=== PATIENT | female | born 1980 | race Caucasian/White ===

== ENCOUNTER 2019-04-23 08:19 | Emergency (ER) | payer MEDICAID ==
--- NOTE | 2019-04-23 08:50 | EDM.PDOC ---
ED HPI GENERAL MEDICAL PROBLEM - General Chief Complaint: Upper Extremity Injury/Pain Stated Complaint: fell outside right shoulder pain Time Seen by Provider: 04/23/19 08:40 Source of Information: Reports: Patient, Family History Limitations: Reports: No Limitations - History of Present Illness INITIAL COMMENTS - FREE TEXT/NARRATIVE: 38-year-old female slipped on the ice falling on her right arm within the last hour. She has intense upper arm pain and inability to move her right arm. No other injury. Onset: Sudden Duration: Hour(s): (Within the last hour) Location: Reports: Upper Extremity, Right Associated Symptoms: Reports: No Other Symptoms - Related Data Allergies Allergy/AdvReac Type Severity Reaction Status Date / Time Penicillins Allergy Vomiting Verified 04/23/19 08:41 Sulfa (Sulfonamide Allergy Itching Verified 04/23/19 08:41 Antibiotics) Home Meds: Home Meds Citalopram [Citalopram HBr] 20 mg PO DAILY 11/22/17 [History] Gabapentin [Neurontin] 300 mg PO TID 11/22/17 [History] Past Medical History Musculoskeletal History: Reports: Back Pain, Chronic Social & Family History - Caffeine Use Caffeine Use: Reports: Soda Review of Systems - Review of Systems Review Of Systems: See Below Constitutional: Denies: Fever Respiratory: Denies: Shortness of Breath Cardiovascular: Denies: Chest Pain GI/Abdominal: Reports: Nausea. Denies: Vomiting Musculoskeletal: Reports: Other (Chronic back pain) Skin: Reports: No Symptoms ED EXAM, GENERAL - Physical Exam Exam: See Below Exam Limited By: No Limitations General Appearance: Alert, Moderate Distress (Looks fairly comfortable) Neck: Supple, Non-Tender Respiratory/Chest: No Respiratory Distress Extremities: Other (No tenderness to palpation of the right clavicle, there is a defect under the ac joint and tenderness over the proximal humerus) Skin Exam: Warm, Dry Course - Vital Signs Last Recorded V/S: Last Vital Signs Temp 95.2 F L 04/23/19 08:42 Pulse 85 04/23/19 08:42 Resp 22 H 04/23/19 08:42 BP 108/67 04/23/19 08:42 Pulse Ox 99 04/23/19 08:42 - Orders/Labs/Meds Orders: Active Orders 24 hr Category Date Time Status Consult to Orthopedic Clinic [CONS] Routine Cons 04/23/19 09:55 Active DME for Discharge [COMM] Stat Oth 04/23/19 09:22 Ordered Meds: Medications Discontinued Medications Generic Name Dose Route Start Last Admin Trade Name Jones PRN Reason Stop Dose Admin Hydromorphone HCl 0.5 mg 04/23/19 08:55 04/23/19 09:02 Dilaudid IVPUSH 04/23/19 08:56 0.5 mg ONETIME ONE Administration Sodium Chloride 1,000 mls @ 1,000 mls/hr 04/23/19 09:00 04/23/19 09:03 Normal Saline IV 1,000 mls/hr ASDIRECTED MISTI Administration - Re-Assessments/Exams Free Text/Narrative Re-Assessment/Exam: 04/23/19 08:57 An x-ray of the right shoulder was obtained and confirmed an anterior dislocation. An IV was started, the patient was given 0.5 mg of IV Dilaudid and anesthesia was consulted for propofol induction during reduction. 04/23/19 09:22 Under propofol sedation the patient shoulder reduced with countertraction fairly easily. A postreduction x-ray was obtained. 04/23/19 09:48 Postreduction x-ray confirmed appropriate reduction. A sling was placed and the patient was symptom-free. I'm going to have her wear the sling for the next several days and avoid any abduction or external rotation of the arm and recheck with orthopedics next Tuesday. Departure - Departure Time of Disposition: 10:01 Disposition: Home, Self-Care 01 Clinical Impression: Dislocation of right shoulder joint Qualifiers: Encounter type: initial encounter Qualified Code(s): S43.004A - Unspecified dislocation of right shoulder joint, initial encounter - Discharge Information Instructions: Shoulder Dislocation Referrals: Tiny Hood PA-C [Primary Care Provider] - Forms: ED Department Discharge Care Plan Goals: Wear sling and wrap with Joey wrap if necessary to avoid extending were reaching up with your right arm until rechecked by orthopedics next week. Arm can be used out of the sling as discussed. - My Orders Last 24 Hours: My Active Orders 04/23/19 09:22 DME for Discharge [COMM] Stat 04/23/19 09:55 Consult to Orthopedic Clinic [CONS] Routine - Assessment/Plan Last 24 Hours: My Active Orders 04/23/19 09:22 DME for Discharge [COMM] Stat 04/23/19 09:55 Consult to Orthopedic Clinic [CONS] Routine
[2019-04-23] MEDS ORDERED: HYDROmorphone 0.5 MG/0.5 ML Syringe IVPUSH ONE (08:55)
[2019-04-23] MEDS ORDERED: Propofol 200 MG/20 ML SDV ONE (09:00)
[2019-04-23] MEDS ORDERED: Sodium Chloride 0.9% 1,000 ML IV SCH (09:00)
--- NOTE | 2019-04-23 09:26 | CR ---
Shoulder Comp Rt 2 view CLINICAL HISTORY: Fall FINDINGS: There is a anterior dislocation of glenohumeral joint. No fracture is identified on the current exam Impression: Anterior dislocation
--- NOTE | 2019-04-23 10:26 | CR ---
Shoulder 1V Rt CLINICAL HISTORY: Altered injection FINDINGS: Previously seen anterior dislocation has been reduced. There is a small Hill-Sachs deformity in the lateral aspect of the humeral articular margin. Impression: Reduction of previous anterior dislocation Small Hill-Sachs deformity laterally
== END 2019-04-23 10:01 | disposition home or self-care (01) ==
LOC: JP.ED 08:19
DX: S43.014A Anterior dislocation of right humerus, initial encounter (principal); Z88.0 Allergy status to penicillin; Z88.2 Allergy status to sulfonamides; W00.0XXA Fall on same level due to ice and snow, initial encounter
CPT/HCPCS: 23650; 73020; 73030; 96374; 99283; J1170; J2704; J7030

== ENCOUNTER 2020-07-11 17:43 | Emergency (ER) | payer MEDICARE, MEDICAID ==
[2020-07-11] MEDS ORDERED: Propofol 200 MG/20 ML SDV IVPUSH ONE (17:55)
--- NOTE | 2020-07-11 18:19 | EDM.PDOC ---
ED HPI GENERAL MEDICAL PROBLEM - General Chief Complaint: Upper Extremity Injury/Pain Stated Complaint: MEDICAL VIA [facility] Time Seen by Provider: 07/11/20 18:00 Source of Information: Reports: Patient, EMS, Family History Limitations: Reports: No Limitations - History of Present Illness INITIAL COMMENTS - FREE TEXT/NARRATIVE: 39-year-old female brought in by EMS with a right shoulder dislocation. This is the second episode, she had a dislocation late last fall and sustained a small lateral Hill-Sachs deformity. Tonight she was lying in bed, reached up to grab something and it popped out. No direct trauma, no fall. She is 8-1/2 months and just had a checkup yesterday and everything is going "great". She is otherwise healthy. She is having significant pain in the right shoulder and is unable to move the shoulder. She is holding it in adduction and internally rotated against her body. Onset: Sudden Duration: Hour(s): (Within the last hour) Location: Reports: Upper Extremity, Right Associated Symptoms: Reports: No Other Symptoms - Related Data Allergies Allergy/AdvReac Type Severity Reaction Status Date / Time Penicillins Allergy Vomiting Verified 07/11/20 18:20 Sulfa (Sulfonamide Allergy Itching Verified 07/11/20 18:20 Antibiotics) Home Meds: Home Meds Citalopram [Citalopram HBr] 20 mg PO DAILY 11/22/17 [History] Enoxaparin Sodium [Lovenox] 1 injection SQ BID 07/11/20 [History] valACYclovir HCl [Valacyclovir] 1 tab PO DAILY 07/11/20 [History] Past Medical History HEENT History: Reports: None Cardiovascular History: Reports: None Respiratory History: Reports: None Gastrointestinal History: Reports: None Genitourinary History: Reports: Renal Calculus [employer] History: Reports: Musculoskeletal History: Reports: Back Pain, Chronic, Other (See Below) Other Musculoskeletal History: right shoulder pain Neurological History: Reports: None Psychiatric History: Reports: Anxiety, Depression, PTSD Endocrine/Metabolic History: Reports: None Hematologic History: Reports: None Immunologic History: Reports: None Oncologic (Cancer) History: Reports: None Dermatologic History: Reports: None - Past Surgical History Head Surgeries/Procedures: Reports: None GI Surgical History: Reports: Appendectomy Female Surgical History: Reports: Lithotripsy/ESWL Musculoskeletal Surgical History: Reports: Other (See Below) Other Musculoskeletal Surgeries/Procedures:: back surgery x 3 Social & Family History - Caffeine Use Caffeine Use: Reports: Coffee Review of Systems - Review of Systems Review Of Systems: See Below Constitutional: Denies: Fever Respiratory: Reports: No Symptoms Cardiovascular: Reports: No Symptoms Musculoskeletal: Reports: Other (Pain in the right shoulder only) Skin: Reports: No Symptoms Neurological: Reports: No Symptoms Psychiatric: Reports: No Symptoms ED EXAM, GENERAL - Physical Exam Exam: See Below Exam Limited By: No Limitations General Appearance: Alert, Moderate Distress Respiratory/Chest: No Respiratory Distress, Lungs Clear Cardiovascular: Regular Rate, Rhythm Extremities: Other (Patient is an obvious defect under the lateral clavicle AC joint area, and a fullness anteriorly to the shoulder typical of anterior dislocation) Neurological: Alert, Oriented Psychiatric: Anxious Skin Exam: Warm, Dry Course - Vital Signs Last Recorded V/S: Last Vital Signs Temp 97.2 F 07/11/20 18:30 Pulse 86 07/11/20 18:30 Resp 14 07/11/20 18:30 BP 116/71 07/11/20 18:30 Pulse Ox 99 07/11/20 18:30 - Orders/Labs/Meds Orders: Active Orders 24 hr Category Date Time Status Consult to Orthopedic Clinic [CONS] Routine Cons 07/11/20 18:34 Active DME for Discharge [COMM] Stat Oth 07/11/20 18:26 Ordered Meds: Medications Discontinued Medications Generic Name Dose Route Start Last Admin Trade Name Jones PRN Reason Stop Dose Admin Propofol 200 mg 07/11/20 17:55 07/11/20 18:40 Diprivan 20 Ml IVPUSH 07/11/20 17:56 80 mg ONETIME ONE Administration - Re-Assessments/Exams Free Text/Narrative Re-Assessment/Exam: 07/11/20 18:14 Due to her and the very straightforward nature of the injury, an x-ray was deferred. Patient was given 90 mg of IV propofol for sedation as she has not eaten in the last 3-1/2 hours. Using countertraction, the shoulder was relocated without difficulty. 07/11/20 18:19 15 minutes after the reduction, patient was back to baseline except for slightly "woozy". A right arm sling was applied and I am going to recommend she follow- up with Dr. Fernandez next week because of the recurring nature of the injury. She will keep her arm in sling through the weekend. Departure - Departure Time of Disposition: 18:58 Disposition: Home, Self-Care 01 Clinical Impression: Anterior dislocation of right shoulder Qualifiers: Encounter type: initial encounter Qualified Code(s): S43.014A - Anterior dislocation of right humerus, initial encounter - Discharge Information Instructions: Shoulder Dislocation Referrals: PCP,None [Primary Care Provider] - Forms: ED Department Discharge Care Plan Goals: Keep your arm in sling through the weekend, and call Dr. Fernandez's clinic on Tuesday morning to schedule an appointment for recheck either Tuesday or of next week. If you remove your arm from the sling at any point, avoid reaching up or back with your right arm. Return anytime if worsening or concerns. Sepsis Event Note (ED) - Focused Exam Vital Signs: Vital Signs Temp Pulse Resp BP Pulse Ox 07/11/20 18:30 97.2 F 86 14 116/71 99 07/11/20 17:51 97.7 F 84 20 124/74 96 - My Orders Last 24 Hours: My Active Orders 07/11/20 18:26 DME for Discharge [COMM] Stat 07/11/20 18:34 Consult to Orthopedic Clinic [CONS] Routine - Assessment/Plan Last 24 Hours: My Active Orders 07/11/20 18:26 DME for Discharge [COMM] Stat 07/11/20 18:34 Consult to Orthopedic Clinic [CONS] Routine
== END 2020-07-11 18:59 | disposition home or self-care (01) ==
LOC: JP.ED 17:43
DX: O9A.213 Injury, poisoning and certain other consequences of external causes complicating pregnancy, third trimester (principal); S43.014A Anterior dislocation of right humerus, initial encounter; Z88.0 Allergy status to penicillin; Z88.2 Allergy status to sulfonamides; Z3A.36 36 weeks gestation of pregnancy; X58.XXXA Exposure to other specified factors, initial encounter
CPT/HCPCS: 23650; 23655; 99283; J2704

== ENCOUNTER 2020-07-28 13:07 | Emergency (ER) | payer MEDICARE, MEDICAID ==
--- NOTE | 2020-07-28 13:49 | EDM.PDOC ---
ED HPI GENERAL MEDICAL PROBLEM - General Chief Complaint: Lower Extremity Injury/Pain Stated Complaint: L KNEE PAIN Time Seen by Provider: 07/28/20 13:35 Source of Information: Reports: Patient, RN History Limitations: Reports: No Limitations - History of Present Illness INITIAL COMMENTS - FREE TEXT/NARRATIVE: 39 yo female claims she had a recent stress fx to her lateral knee area that is being managed with a walker and no weight bearing. She has an ortho appt to follow up on this this coming Tuesday([facility]). Today she fell onto her butt and the pain in her knee is much worse. She did not strike the knee. Here for eval. Onset: Today, Sudden Onset Date: 07/28/20 Duration: Minutes:, Constant Location: Reports: Lower Extremity, Left Quality: Reports: Ache Severity: Moderate Improves with: Reports: Rest Worsens with: Reports: Movement Context: Reports: Trauma Associated Symptoms: Reports: No Other Symptoms Treatments INCIDENT HANDLER: Reports: Other (see below) (percocet x 1) Left Knee Pain Score (Numeric/FACES): 5 - Related Data Allergies Allergy/AdvReac Type Severity Reaction Status Date / Time Penicillins Allergy Vomiting Verified 07/11/20 18:20 Sulfa (Sulfonamide Allergy Itching Verified 07/11/20 18:20 Antibiotics) Home Meds: Home Meds Citalopram [Citalopram HBr] 20 mg PO DAILY 11/22/17 [History] Acetaminophen/HYDROcodone [[place] 325-5 MG] 1 tab PO Q6H PRN 07/28/20 [History] Cholecalciferol (Vitamin D3) [Vitamin D3] 1,000 unit PO DAILY 07/28/20 [History] Fluticasone Propionate [Flonase] 2 spray NASBOTH DAILY 07/28/20 [History] Gabapentin [Neurontin] 200 mg PO TID 07/28/20 [History] L.acidoph,Paracasei, B.lactis [Probiotic] 1 each PO DAILY 07/28/20 [History] No122/Iron/Folic Acid [ Multi Tablet] 1 tab PO DAILY 07/28/20 [History] Vitamin E Acetate [Vitamin E] 600 unit PO DAILY 07/28/20 [History] Past Medical History HEENT History: Reports: None Cardiovascular History: Reports: None Respiratory History: Reports: None Gastrointestinal History: Reports: None Genitourinary History: Reports: Renal Calculus 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: Musculoskeletal History: Reports: Back Pain, Chronic, Other (See Below) Other Musculoskeletal History: right shoulder pain Neurological History: Reports: None Psychiatric History: Reports: Anxiety, Depression, PTSD Endocrine/Metabolic History: Reports: None Hematologic History: Reports: None Immunologic History: Reports: None Oncologic (Cancer) History: Reports: None Dermatologic History: Reports: None - Infectious Disease History Infectious Disease History: Reports: Chicken Pox - Past Surgical History Head Surgeries/Procedures: Reports: None GI Surgical History: Reports: Appendectomy, ERCP Female Surgical History: Reports: Lithotripsy/ESWL Musculoskeletal Surgical History: Reports: Other (See Below) Other Musculoskeletal Surgeries/Procedures:: back surgery x 3 Social & Family History - Tobacco Use Tobacco Use Status *Q: Current Every Day Tobacco User Years of Tobacco use: 25 Packs/Tins Daily: 1 - Caffeine Use Caffeine Use: Reports: Coffee - Recreational Drug Use Recreational Drug Use: No Review of Systems - Review of Systems Review Of Systems: See Below Constitutional: Reports: No Symptoms Musculoskeletal: Reports: Joint Pain (L lateral knee) Skin: Reports: No Symptoms Neurological: Reports: No Symptoms ED EXAM, GENERAL - Physical Exam Exam: See Below General Appearance: Alert, WD/WN, No Apparent Distress Extremities: Normal Inspection, No Pedal Edema, Limited Range of Motion (due to pain). No: Normal Range of Motion, Non-Tender, Pedal Edema, Increased Warmth, Redness Neurological: Alert, Oriented, CN II-XII Intact, Normal Cognition, No Motor/Sensory Deficits Skin Exam: Warm, Dry, Intact, Normal Color, No Rash Course - Vital Signs Last Recorded V/S: Last Vital Signs Temp 36.7 C 07/28/20 13:28 Pulse 101 H 07/28/20 13:28 Resp 13 07/28/20 13:28 BP 106/74 07/28/20 13:28 Pulse Ox 95 07/28/20 13:28 - Orders/Labs/Meds Meds: Medications Discontinued Medications Generic Name Dose Route Start Last Admin Trade Name Freq PRN Reason Stop Dose Admin Oxycodone/Acetaminophen 1 tab 07/28/20 14:12 07/28/20 14:24 Percocet 325-5 Mg PO 07/28/20 14:13 1 tab ONETIME STA Administration - Radiology Interpretation Free Text/Narrative:: L knee X-ray- - Re-Assessments/Exams Free Text/Narrative Re-Assessment/Exam: 07/28/20 15:22 Long leg splint applied to further limit movement of the left knee. Free Text/Narrative Re-Assessment/Exam: 07/28/20 15:50 Patient not cooperative for a full knee X-ray series. The one view obtained is negative. Departure - Departure Time of Disposition: 16:00 Disposition: Home, Self-Care 01 Condition: Fair Clinical Impression: Left knee pain Qualifiers: Chronicity: unspecified Qualified Code(s): M25.562 - Pain in left knee - Discharge Information *PRESCRIPTION DRUG MONITORING PROGRAM REVIEWED*: No *COPY OF PRESCRIPTION DRUG MONITORING REPORT IN PATIENT ANGELES: No Instructions: Acute Knee Pain, Adult, [id number] Referrals: Tiny Hood PA-C [Primary Care Provider] - Forms: ED Department Discharge Additional Instructions: Use your immobilizer except when bathing. May take it off to bathe and then reapply it. Use your Vicodin for pain relief. Keep your appt for Tuesday with your [facility] Orthopedic provider. Use your walker and no weight bearing. Sepsis Event Note (ED) - Evaluation Sepsis Screening Result: No Definite Risk - Focused Exam Vital Signs: Vital Signs Temp Pulse Resp BP Pulse Ox 07/28/20 13:28 36.7 C 101 H 13 106/74 95 07/28/20 13:23 36.7 C 101 H 13 106/74 95
[2020-07-28] MEDS ORDERED: Acetaminophen/oxyCODONE 325-5 MG Tab PO STA (14:12)
--- NOTE | 2020-07-28 14:26 | CR ---
Knee 1V or 2V Lt CLINICAL HISTORY: Knee pain FINDINGS: Only a single lateral image is able to be obtained due to patient pain. No acute fracture or dislocation is noted. There are no osseous lesions. IMPRESSION: Very limited study No fracture or dislocation identified. Full study recommended when patient's condition allows
== END 2020-07-28 16:10 | disposition home or self-care (01) ==
LOC: JP.ED 13:07
DX: M25.562 Pain in left knee (principal); Z72.0 Tobacco use; Z88.2 Allergy status to sulfonamides; Z88.0 Allergy status to penicillin; Z79.899 Other long term (current) drug therapy
CPT/HCPCS: 29505; 73560; 99283; A9270; 29105; 99282

== ENCOUNTER 2020-08-12 17:58 | Emergency (ER) | payer MEDICARE, MEDICAID ==
[2020-08-12] MEDS ORDERED: cefTRIAXone 2 GM in Sodium Chloride 0.9% 50 ML IV ONE (19:17)
[2020-08-12] MEDS ORDERED: HYDROmorphone 1 MG/ML Syringe IVPUSH ONE (19:17)
[2020-08-12] MEDS ORDERED: Ondansetron 4 MG/2 ML SDV IVPUSH ONE (19:18)
--- NOTE | 2020-08-12 19:28 | EDM.PDOC ---
ED HPI GENERAL MEDICAL PROBLEM - General Chief Complaint: Abdominal Pain Stated Complaint: KIDNEY OR BLADDER INFECTION Time Seen by Provider: 08/12/20 18:37 Source of Information: Reports: Patient, Family ( at bedside), RN, RN Notes Reviewed - History of Present Illness INITIAL COMMENTS - FREE TEXT/NARRATIVE: chief complaint: bad bladder infection This is a 40 year old female presents to the ER with , reports has been feeling sick for the past two days. reports painful urination, fever, chills, nausea without vomiting, and left sided back pain. reports she has bladder infections in the past. reports had a baby girl on 07/20/2020 without any complications. vaginal delivery. has 2 Sons age 7 years and 16 years old. Onset: Gradual Onset Date: 08/11/20 Duration: Day(s): (two), Getting Worse Location: Reports: Abdomen, Radiates to (left lower back) Quality: Reports: Same as Previous Episode, Stabbing, Throbbing Severity: Severe Improves with: Reports: None Worsens with: Reports: Movement Associated Symptoms: Reports: Fever/Chills, Loss of Appetite, Malaise, Nausea/Vomiting - Related Data Allergies Allergy/AdvReac Type Severity Reaction Status Date / Time Penicillins Allergy Vomiting Verified 08/12/20 18:26 Sulfa (Sulfonamide Allergy Itching Verified 08/12/20 18:26 Antibiotics) Home Meds: Home Meds Citalopram [Citalopram HBr] 20 mg PO DAILY 11/22/17 [History] Acetaminophen/HYDROcodone [[place] 325-5 MG] 1 tab PO Q6H PRN 07/28/20 [History] Cholecalciferol (Vitamin D3) [Vitamin D3] 1,000 unit PO DAILY 07/28/20 [History] Heparin Sodium,Porcine/PF [Heparin 2 Unit/2 ml (1/ml) Syr] 4 units SQ ASDIRECTED 08/12/20 [History] Past Medical History HEENT History: Reports: None Cardiovascular History: Reports: Blood Clots/VTE/DVT Respiratory History: Reports: None Gastrointestinal History: Reports: None Genitourinary History: Reports: Renal Calculus 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: Musculoskeletal History: Reports: Back Pain, Chronic, Other (See Below) Other Musculoskeletal History: right shoulder pain Neurological History: Reports: None Psychiatric History: Reports: Anxiety, Depression, PTSD Endocrine/Metabolic History: Reports: None Hematologic History: Reports: Anticoagulation Therapy Immunologic History: Reports: None Oncologic (Cancer) History: Reports: None Dermatologic History: Reports: None - Infectious Disease History Infectious Disease History: Reports: Chicken Pox - Past Surgical History Head Surgeries/Procedures: Reports: None GI Surgical History: Reports: Appendectomy, ERCP Female Surgical History: Reports: Lithotripsy/ESWL Musculoskeletal Surgical History: Reports: Other (See Below) Other Musculoskeletal Surgeries/Procedures:: back surgery x 3 Oncologic Surgical History: Reports: None Dermatological Surgical History: Reports: None Social & Family History - Tobacco Use Tobacco Use Status *Q: Current Every Day Tobacco User Years of Tobacco use: 20 Packs/Tins Daily: 1.5 Used Tobacco, but Quit: No Second Hand Smoke Exposure: No - Caffeine Use Caffeine Use: Reports: Coffee - Recreational Drug Use Recreational Drug Use: No - Living Situation & Occupation Living situation: Reports: , with Family (lives with and 3 children ages 3 month, 7 year, and 16 years Home in [place] about [place] north of [place].) ED ROS GENERAL - Review of Systems Review Of Systems: See Below Constitutional: Reports: Fever, Chills, Malaise, Fatigue, Decreased Appetite HEENT: Reports: No Symptoms Respiratory: Reports: No Symptoms Cardiovascular: Reports: No Symptoms Endocrine: Reports: No Symptoms GI/Abdominal: Reports: Abdominal Pain, Decreased Appetite, Nausea : Reports: Dysuria, Flank Pain (left sided), Frequency, Urgency Musculoskeletal: Reports: Back Pain (left lower back pain), Other (left lower leg in des wrap for a stress fracture.) Skin: Reports: No Symptoms Neurological: Reports: No Symptoms Psychiatric: Reports: No Symptoms Hematologic/Lymphatic: Reports: No Symptoms Immunologic: Reports: No Symptoms ED EXAM, GI/ABD - Physical Exam Exam: See Below Exam Limited By: No Limitations General Appearance: Alert, WD/WN, Moderate Distress. No: Thin Eyes: Bilateral: Normal Appearance, EOMI Ears: Normal External Exam Nose: Normal Inspection Throat/Mouth: Normal Inspection Head: Atraumatic, Normocephalic Neck: Normal Inspection, Supple, Non-Tender Respiratory/Chest: No Respiratory Distress, Lungs Clear, Normal Breath Sounds, No Accessory Muscle Use Cardiovascular: Normal Peripheral Pulses, Regular Rate, Rhythm, No Edema GI/Abdominal Exam: Normal Bowel Sounds, Soft, Tender (lower abdomen) (Female) Exam: Deferred Rectal (Female) Exam: Deferred Back Exam: Normal Inspection, CVA Tenderness (L) Extremities: Other (left lower leg in des wrap for recent stress fracture) Neurological: Alert, Oriented, CN II-XII Intact, Normal Cognition, Normal Gait, Normal Reflexes, No Motor/Sensory Deficits Psychiatric: Normal Affect, Normal Mood Skin Exam: Warm, Dry, Intact, Pallor Lymphatic: No Adenopathy Course - Vital Signs Last Recorded V/S: Last Vital Signs Temp 96.6 F L 08/12/20 18:30 Pulse 136 H 08/12/20 18:30 Resp 16 08/12/20 18:30 BP 118/77 08/12/20 18:30 Pulse Ox 97 08/12/20 18:30 - Orders/Labs/Meds Orders: Active Orders 24 hr Category Date Time Status CULTURE BLOOD [BC] Urgent Lab 08/12/20 19:34 Received CULTURE BLOOD [BC] Urgent Lab 08/12/20 19:37 Received CULTURE URINE [RM] Urgent Lab 08/12/20 18:54 Received Sodium Chloride 0.9% [Normal Saline] 1,000 ml Med 08/12/20 19:30 Active IV ASDIRECTED Blood Culture x2 Reflex Set [OM.PC] Urgent Oth 08/12/20 19:16 Ordered Medication Orders Sodium Chloride (Normal Saline) 1,000 mls @ 999 mls/hr IV ASDIRECTED [facility] Last Admin: 08/12/20 19:49 Dose: 999 mls/hr Documented by: MÓNICA Labs: Laboratory Tests 08/12/20 08/12/20 08/12/20 Range/Units 18:19 19:34 19:34 WBC 15.4 H (4.5-11.0) K/uL RBC 4.05 (3.30-5.50) M/uL Hgb 11.7 L (12.0-15.0) g/dL Hct 36.6 (36.0-48.0) % MCV 90 (80-98) fL MCH 29 (27-31) pg MCHC 32 (32-36) % Plt Count 238 (150-400) K/uL Neut % (Auto) 84 H (36-66) % Lymph % (Auto) 9 L (24-44) % [place] % (Auto) 7 H (2-6) % Eos % (Auto) 0 L (2-4) % Baso % (Auto) 0 (0-1) % Sodium 136 L (140-148) mmol/L Potassium 3.5 L (3.6-5.2) mmol/L Chloride 97 L (100-108) mmol/L Carbon Dioxide 25 (21-32) mmol/L Anion Gap 17.5 H (5.0-14.0) mmol/L BUN 13 (7-18) mg/dL Creatinine 1.1 H (0.6-1.0) mg/dL Est Cr Clr Drug Dosing 59.29 mL/min Estimated GFR (MDRD) 55 L (>60) Glucose 98 (74-106) mg/dL Calcium 9.6 (8.5-10.1) mg/dL Urine Color Yellow (YELLOW) Urine Appearance Cloudy A (CLEAR) Urine pH 6.0 (5.0-8.0) Ur Specific [place] 1.015 (1.008-1.030) Urine Protein 100 H (NEGATIVE) mg/dL Urine Glucose (UA) Negative (NEGATIVE) mg/dL Urine Ketones 15 H (NEGATIVE) mg/dL Urine Occult Blood Moderate H (NEGATIVE) Urine Nitrite Positive H (NEGATIVE) Urine Bilirubin Negative (NEGATIVE) Urine Urobilinogen 0.2 (0.2-1.0) EU/dL Ur Leukocyte Esterase Small H (NEGATIVE) Urine RBC 5-10 H (0-5) Urine WBC 10-20 H (0-5) Ur Epithelial Cells Few Amorphous Sediment Occasional Urine Bacteria Moderate Urine Mucus Occasional Urine Other Meds: Medications Generic Name Dose Route Start Last Admin Trade Name Freq PRN Reason Stop Dose Admin Sodium Chloride 1,000 mls @ 999 mls/hr 08/12/20 19:30 08/12/20 19:49 Normal Saline IV 999 mls/hr ASDIRECTED MISTI Administration Discontinued Medications Generic Name Dose Route Start Last Admin Trade Name Freq PRN Reason Stop Dose Admin Hydromorphone HCl 1 mg 08/12/20 19:17 08/12/20 19:48 Hydromorphone 1 Mg/Ml Syringe IVPUSH 08/12/20 19:18 1 mg ONETIME ONE Administration Ceftriaxone Sodium 2 gm/ 50 mls @ 100 mls/hr 08/12/20 19:17 08/12/20 19:49 Sodium Chloride IV 08/12/20 19:46 100 mls/hr ONETIME ONE Administration Ondansetron HCl 4 mg 08/12/20 19:18 08/12/20 19:48 Ondansetron 4 Mg/2 Ml Sdv IVPUSH 08/12/20 19:19 4 mg ONETIME ONE Administration - Re-Assessments/Exams Free Text/Narrative Re-Assessment/Exam: 08/12/20 19:32 discussed pyelonephritis vs urinary tract infection and treatment options and adverse events. She is willing to stay for antibiotics, IV fluids and labs. and outpatient medications declines admission to hospital or CT scan of abdomen pelvis discussed will give IV Rocephin 2 grams IV antibiotic IV Normal Saline one liter for hydration IV Dilaudid 1 mg for pain control IV Zofran 4mg for nausea Labs -CBC= wbc 15.4, hgb 11.7, hct 36.6 , plt 238 -BMP= na+136, k+ 3.5, cl-97, co2 25, cr 1.1, gfr 59, -urine= cloudy, 1.015, ketones 15, blood moderate, nitrate +, leukocytes small, wbc 10-20, rbc 5-10 -blood cultures x2 -urine culture pending Discharge medications -Keflex 500mg take one capsule 4 x a day for 10 days -Pyridium 200mg tid prn bladder spasm -Tylenol with codeine one every 4 to 6 hours as needed for pain #15 Discharge plans -take medications as prescribed -push fluids -keep up nutrition -rest as much as possible til recovered. -follow in clinic for recheck in 3 to 5 days -return to ER if has any fever, chills, nausea, vomiting, rash or not improved. and Mrs. Hood agree with plan of care. 08/12/20 20:26 now feeling better and will discharge to home with instructions Departure - Departure Time of Disposition: 20:34 Disposition: Home, Self-Care 01 Condition: Good Clinical Impression: Pyelonephritis, Urinary tract infection - Discharge Information *PRESCRIPTION DRUG MONITORING PROGRAM REVIEWED*: No *COPY OF PRESCRIPTION DRUG MONITORING REPORT IN PATIENT ANGELES: No Instructions: Pyelonephritis, Adult, [id number], Urinary Tract Infection, Adult Referrals: Tiny Hood PADarrylC [Primary Care Provider] - Forms: ED Department Discharge Care Plan Goals: Urinary Tract Infection and left sided Pyelonephritis Discharge medications -Keflex 500mg take one capsule 4 x a day for 10 days -Pyridium 200mg tid prn bladder spasm -Tylenol with codeine one every 4 to 6 hours as needed for pain #15 Discharge plans -take medications as prescribed -push fluids -keep up nutrition -rest as much as possible til recovered. -follow in clinic for recheck in 3 to 5 days -return to ER if has any fever, chills, nausea, vomiting, rash or not improved. and Mrs. Hood agree with plan of care. Sepsis Event Note (ED) - Evaluation Sepsis Screening Result: No Definite Risk - Focused Exam Vital Signs: Vital Signs Temp Pulse Resp BP Pulse Ox 08/12/20 18:30 96.6 F L 136 H 16 118/77 97 08/12/20 18:19 96.6 F L 136 H 16 118/77 97 - Problem List & Annotations (1) Pyelonephritis SNOMED Code(s): 58897108 Code(s): N12 - TUBULO-INTERSTITIAL NEPHRITIS, NOT SPCF ACUTE OR CHRONIC Status: Acute Priority: High Current Visit: Yes (2) Urinary tract infection SNOMED Code(s): 88280165 Code(s): N39.0 - URINARY TRACT INFECTION, SITE NOT SPECIFIED Status: Acute Priority: High Current Visit: Yes Qualifiers: Urinary tract infection type: acute pyelonephritis Qualified Code(s): N10 - Acute pyelonephritis - Problem List Review Problem List Initiated/Reviewed/Updated: Yes - My Orders Last 24 Hours: My Active Orders 08/12/20 19:16 Blood Culture x2 Reflex Set [OM.PC] Urgent 08/12/20 19:30 Sodium Chloride 0.9% [Normal Saline] 1,000 ml IV ASDIRECTED 08/12/20 19:34 CULTURE BLOOD [BC] Urgent 08/12/20 19:37 CULTURE BLOOD [BC] Urgent - Assessment/Plan Last 24 Hours: My Active Orders 08/12/20 19:16 Blood Culture x2 Reflex Set [OM.PC] Urgent 08/12/20 19:30 Sodium Chloride 0.9% [Normal Saline] 1,000 ml IV ASDIRECTED 08/12/20 19:34 CULTURE BLOOD [BC] Urgent 08/12/20 19:37 CULTURE BLOOD [BC] Urgent Plan: Urinary Tract Infection with Pyelonephritis Discharge medications -Keflex 500mg take one capsule 4 x a day for 10 days -Pyridium 200mg tid prn bladder spasm -Tylenol with codeine one every 4 to 6 hours as needed for pain #15 Discharge plans -take medications as prescribed -push fluids -keep up nutrition -rest as much as possible til recovered. -follow in clinic for recheck in 3 to 5 days -return to ER if has any fever, chills, nausea, vomiting, rash or not improved. and Mrs. Hood agree with plan of care.
[2020-08-12] MEDS ORDERED: Sodium Chloride 0.9% 1,000 ML IV SCH (19:30)
== END 2020-08-12 21:15 | disposition home or self-care (01) ==
LOC: JP.ED 17:58
DX: N12 Tubulo-interstitial nephritis, not specified as acute or chronic (principal); Z88.0 Allergy status to penicillin; Z88.2 Allergy status to sulfonamides; Z86.718 Personal history of other venous thrombosis and embolism; Z79.899 Other long term (current) drug therapy; Z72.0 Tobacco use
CPT/HCPCS: 36415; 80048; 81001; 85025; 87040; 87077; 87086; 87088; 87186; 96365; 96375; 99283-25; 99284; J0696; J1170; J2405; J7030

== ENCOUNTER 2020-09-15 17:20 | Emergency (ER) | payer MEDICARE, MEDICAID ==
--- NOTE | 2020-09-15 17:45 | EDM.PDOC ---
ED HPI GENERAL MEDICAL PROBLEM - General Chief Complaint: Genitourinary Problem Stated Complaint: UTI Time Seen by Provider: 09/15/20 17:45 Source of Information: Reports: Patient History Limitations: Reports: No Limitations - History of Present Illness INITIAL COMMENTS - FREE TEXT/NARRATIVE: 40-year-old female developed fairly sudden onset of left lower abdominal and left flank pain with urinary urgency 24 hours ago. She has a history of UTIs but also has a remote history of nephrolithiasis. No fevers or chills, she is very uncomfortable and had difficulty sleeping last night. No nausea or vomiting. Onset: Sudden (Fairly suddenly 24 hours ago) Duration: Day(s): (Symptoms for 2 days) Location: Reports: Abdomen, Back (Left-sided) Improves with: Reports: None Worsens with: Reports: None Associated Symptoms: Reports: Malaise. Denies: Chest Pain, Fever/Chills, Headaches, Shortness of Breath Left Flank Pain Score (Numeric/FACES): 8 - Related Data Allergies Allergy/AdvReac Type Severity Reaction Status Date / Time Penicillins Allergy Vomiting Verified 08/12/20 18:26 Sulfa (Sulfonamide Allergy Itching Verified 08/12/20 18:26 Antibiotics) Home Meds: Home Meds Citalopram [Citalopram HBr] 20 mg PO DAILY 11/22/17 [History] Cholecalciferol (Vitamin D3) [Vitamin D3] 1,000 unit PO DAILY 07/28/20 [History] Heparin Sodium,Porcine/PF [Heparin 2 Unit/2 ml (1/ml) Syr] 4 units SQ ASDIRECTED 08/12/20 [History] Nitrofurantoin Monohyd/M-Cryst [Macrobid 100 mg Capsule] 100 mg PO BID #14 capsule 09/15/20 [Rx] Past Medical History HEENT History: Reports: None Cardiovascular History: Reports: Blood Clots/VTE/DVT Respiratory History: Reports: None Gastrointestinal History: Reports: None Genitourinary History: Reports: Renal Calculus 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: Musculoskeletal History: Reports: Back Pain, Chronic, Other (See Below) Other Musculoskeletal History: right shoulder pain Neurological History: Reports: None Psychiatric History: Reports: Anxiety, Depression, PTSD Endocrine/Metabolic History: Reports: None Hematologic History: Reports: Anticoagulation Therapy Immunologic History: Reports: None Oncologic (Cancer) History: Reports: None Dermatologic History: Reports: None - Infectious Disease History Infectious Disease History: Reports: Chicken Pox - Past Surgical History Head Surgeries/Procedures: Reports: None GI Surgical History: Reports: Appendectomy, ERCP Female Surgical History: Reports: Lithotripsy/ESWL Musculoskeletal Surgical History: Reports: Other (See Below) Other Musculoskeletal Surgeries/Procedures:: back surgery x 3 Oncologic Surgical History: Reports: None Dermatological Surgical History: Reports: None Social & Family History - Tobacco Use Tobacco Use Status *Q: Current Every Day Tobacco User Years of Tobacco use: 25 Packs/Tins Daily: 0.5 - Caffeine Use Caffeine Use: Reports: Coffee, Soda - Recreational Drug Use Recreational Drug Use: No - Living Situation & Occupation Living situation: Reports: , with Family (lives with and 3 children ages 3 month, 7 year, and 16 years Home in [place] about [place] north of [place].) ED ROS GENERAL - Review of Systems Review Of Systems: See Below Constitutional: Reports: Malaise. Denies: Fever, Chills Respiratory: Denies: Shortness of Breath Cardiovascular: Denies: Chest Pain GI/Abdominal: Reports: Abdominal Pain (Left lower quadrant) : Reports: Dysuria, Frequency, Urgency Musculoskeletal: Reports: Back Pain (Left flank) Skin: Reports: No Symptoms Neurological: Reports: No Symptoms Psychiatric: Reports: No Symptoms ED EXAM, RENAL/ - Physical Exam Exam: See Below Exam Limited By: No Limitations General Appearance: Alert, No Apparent Distress Head: Atraumatic Respiratory/Chest: No Respiratory Distress, Lungs Clear Cardiovascular: Regular Rate, Rhythm. No: Tachycardia GI/Abdominal: Soft, Other (Reacts with some tenderness in the lower abdomen but no guarding or rebound) Back Exam: CVA Tenderness (L), Other (Well-healed surgical scars) Neurological: Alert, Oriented Psychiatric: Anxious Skin Exam: Warm, Dry Course - Vital Signs Last Recorded V/S: Last Vital Signs Temp 97.9 F 09/15/20 17:36 Pulse 93 09/15/20 17:36 Resp 16 09/15/20 17:36 BP 133/73 09/15/20 17:36 Pulse Ox 100 09/15/20 17:36 - Orders/Labs/Meds Orders: Active Orders 24 hr Category Date Time Status CULTURE URINE [RM] Stat Lab 09/15/20 18:22 Results Labs: Laboratory Tests 09/15/20 Range/Units 17:45 Urine Color Yellow (YELLOW) Urine Appearance Turbid A (CLEAR) Urine pH 6.5 (5.0-8.0) Ur Specific [place] >= 1.030 (1.008-1.030) Urine Protein >=300 H (NEGATIVE) mg/dL Urine Glucose (UA) Negative (NEGATIVE) mg/dL Urine Ketones 15 H (NEGATIVE) mg/dL Urine Occult Blood Moderate H (NEGATIVE) Urine Nitrite Positive H (NEGATIVE) Urine Bilirubin Negative (NEGATIVE) Urine Urobilinogen 0.2 (0.2-1.0) EU/dL Ur Leukocyte Esterase Large H (NEGATIVE) Urine RBC 10-20 H (0-5) Urine WBC Packed H (0-5) Ur Epithelial Cells Few Amorphous Sediment Not seen Urine Bacteria Many Urine Mucus Not seen Meds: Medications Discontinued Medications Generic Name Dose Route Start Last Admin Trade Name Freq PRN Reason Stop Dose Admin Ceftriaxone Sodium 500 mg/ 0 mg 09/15/20 18:22 09/15/20 18:40 Lidocaine HCl 1 ml IM 09/15/20 18:23 500 inj ONETIME ONE Administration Ketorolac Tromethamine 30 mg 09/15/20 18:22 09/15/20 18:41 Ketorolac 30 Mg/Ml Sdv IM 09/15/20 18:23 30 mg ONETIME ONE Administration - Re-Assessments/Exams Free Text/Narrative Re-Assessment/Exam: 09/15/20 17:59 UA was obtained which is pending, it is cloudy and pinkish. Patient says there is no way she is , a CT of the abdomen and pelvis without contrast was ordered. 09/15/20 18:36 UA is strongly positive, with packed WBCs, bacteria, and nitrite positive. A culture was initiated, the patient was will be given 1 g of IM Rocephin and started on 100 mg of Macrobid twice daily for 7 days. She was also given 30 mg IM dose of Toradol. CT shows no obstructive uropathy although there are chronic calcifications in the kidney, formal interpretation is pending. 09/16/20 07:27 Impression: 1. Large left staghorn calculus. No ureteral stone. Mild renal edema and perinephric fluid. Urinary bladder wall thickening. Correlate with urinalysis for possible urinary tract infection. 2. Punctate nonobstructing right renal stones. Departure - Departure Time of Disposition: 19:09 Disposition: Home, Self-Care 01 Clinical Impression: UTI, Urinary tract infectious disease - Discharge Information Prescriptions: Nitrofurantoin Monohyd/M-Cryst [Macrobid 100 mg Capsule] 100 mg PO BID #14 capsule Instructions: Urinary Tract Infection, Adult, [id number] Referrals: Tiny Hood PA-C [Primary Care Provider] - Forms: ED Department Discharge Care Plan Goals: Take Macrobid twice daily until gone, ibuprofen or naproxen should help with pain along with Tylenol. Return anytime if worsening such as vomiting the medication, increased pain or fever or other concerns. Sepsis Event Note (ED) - Evaluation Sepsis Screening Result: No Definite Risk - My Orders Last 24 Hours: My Active Orders 09/15/20 18:22 CULTURE URINE [RM] Stat - Assessment/Plan Last 24 Hours: My Active Orders 09/15/20 18:22 CULTURE URINE [RM] Stat
[2020-09-15] MEDS ORDERED: cefTRIAXone 500 MG, Lidocaine 1% 1 ML IM ONE ×2 (18:22)
[2020-09-15] MEDS ORDERED: Ketorolac 30 MG/ML SDV IM ONE (18:22)
--- NOTE | 2020-09-15 20:13 | CRLCT ---
Indication: Left flank pain Technique: Nonenhanced axial CT imaging through the abdomen and pelvis. Sagittal and coronal reconstructions are provided. Comparison: None Findings: There is a large staghorn calculus filling the left renal pelvis and calices, measuring up to 3.2 x 2.2 cm in the axial plane and approximately 6 cm cumulative AP extent. There is mild left renal edema and perinephric fluid. A few (1-3) punctate nonobstructing renal stones are noted on the right. The right kidney is otherwise unremarkable. There is unremarkable noncontrast appearance of the liver, gallbladder, spleen, pancreas, and adrenal glands. There is no abdominal lymphadenopathy. There is normal caliber of the abdominal aorta. The stomach and duodenum are unremarkable. There are no abnormally dilated small bowel loops. The appendix is not visualized. There is no colonic wall thickening or mesenteric edema. There is mild diffuse urinary bladder wall thickening. The uterus and ovaries are unremarkable. There is no pelvic lymphadenopathy or free fluid. Fixation hardware is noted in the spine. There is minimal bibasilar atelectasis. Impression: 1. Large left staghorn calculus. No ureteral stone. Mild renal edema and perinephric fluid. Urinary bladder wall thickening. Correlate with urinalysis for possible urinary tract infection. 2. Punctate nonobstructing right renal stones. Please note that all CT scans at this facility use dose modulation, iterative reconstruction, and/or weight-based dosing when appropriate to reduce radiation dose to as low as reasonably achievable. Dictated by Trinidad Montero MD @ Sep 15 2020 7:59PM (Electronically Signed)
== END 2020-09-15 19:10 | disposition home or self-care (01) ==
LOC: JP.ED 17:20
DX: N39.0 Urinary tract infection, site not specified (principal); Z88.0 Allergy status to penicillin; Z88.2 Allergy status to sulfonamides; Z79.899 Other long term (current) drug therapy; Z72.0 Tobacco use
CPT/HCPCS: 74176; 81001; 87086; 87088; 87186; 96372; 99283; 99284-25; J0696; J1885

== ENCOUNTER 2021-01-10 11:57 | Emergency (ER) | payer MEDICARE, MEDICAID ==
--- NOTE | 2021-01-10 12:56 | EDM.PDOC ---
ED HPI GENERAL MEDICAL PROBLEM - General Chief Complaint: Lower Extremity Injury/Pain Stated Complaint: L KNEE PAIN Time Seen by Provider: 01/10/21 12:30 Source of Information: Reports: Patient History Limitations: Reports: No Limitations - History of Present Illness INITIAL COMMENTS - FREE TEXT/NARRATIVE: 40-year-old female with chronic recurring left knee pain, over the past 48 hours has developed intense pain in the medial aspect of the distal thigh without any injury. The some pain with ambulation, she localizes the pain to the distal hamstring tendons behind the knee. She feels they are swollen. 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: Musculoskeletal History: Reports: Back Pain, Chronic, Other (See Below) Other Musculoskeletal History: right shoulder pain Neurological History: Reports: None Psychiatric History: Reports: Anxiety, Depression, PTSD Endocrine/Metabolic History: Reports: None Hematologic History: Reports: Anticoagulation Therapy Immunologic History: Reports: None Oncologic (Cancer) History: Reports: None Dermatologic History: Reports: None - Infectious Disease History Infectious Disease History: Reports: Chicken Pox - Past Surgical History Head Surgeries/Procedures: Reports: None Cardiovascular Surgical History: Reports: None GI Surgical History: Reports: Appendectomy, ERCP Female Surgical History: Reports: Lithotripsy/ESWL Musculoskeletal Surgical History: Reports: Other (See Below) Other Musculoskeletal Surgeries/Procedures:: back surgery x 3 Oncologic Surgical History: Reports: None Dermatological Surgical History: Reports: None Social & Family History - Caffeine Use Caffeine Use: Reports: Coffee, Soda - Living Situation & Occupation Living situation: Reports: , with Family (lives with and 3 children ages 3 month, 7 year, and 16 years Home in [place] about [place] of [place].) Review of Systems - Review of Systems Review Of Systems: See Below Constitutional: Denies: Fever Respiratory: Reports: No Symptoms Cardiovascular: Reports: No Symptoms GI/Abdominal: Reports: No Symptoms Genitourinary: Reports: No Symptoms Musculoskeletal: Reports: Back Pain Skin: Reports: No Symptoms. Denies: Rash, Erythema Neurological: Denies: Paresthesia Psychiatric: Reports: No Symptoms ED EXAM, GENERAL - Physical Exam Exam: See Below Exam Limited By: No Limitations General Appearance: Alert, No Apparent Distress, Other (Patient looks uncomfortable but not distressed) Head: Atraumatic Respiratory/Chest: No Respiratory Distress, Lungs Clear Cardiovascular: Regular Rate, Rhythm GI/Abdominal: Soft, Non-Tender Extremities: Other (Exam is otherwise limited to the left lower extremity. She has slight swelling and tenderness to palpation of the medial tendons of the hamstrings into the popliteal area. They are slightly swollen but they are not red or inflamed, the distal leg is no edema or tenderness) Neurological: Alert, Oriented, No Motor/Sensory Deficits Psychiatric: Normal Affect, Normal Mood Course - Vital Signs Last Recorded V/S: Last Vital Signs Temp 97.8 F 01/10/21 12:28 Pulse 85 01/10/21 12:28 Resp 16 01/10/21 12:28 BP 118/76 01/10/21 12:28 Pulse Ox 97 01/10/21 12:28 - Orders/Labs/Meds Orders: Active Orders 24 hr Category Date Time Status Consult to Orthopedic Clinic [CONS] Routine Cons 01/10/21 12:43 Active - Re-Assessments/Exams Free Text/Narrative Re-Assessment/Exam: 01/10/21 14:47 This patient has a local tendinitis of the hamstring tendons. She asked for referral for second opinion on chronic left knee pain, so this was ordered for Dr. Fernandez to see this week. I put her on Toradol 3 times a day for the next 3 days. Also a 6 inch Joey wrap was applied to the leg and she can wear this for comfort. Departure - Departure Time of Disposition: 13:15 Disposition: Home, Self-Care 01 Clinical Impression: Hamstring tendinitis of left thigh - Discharge Information Instructions: Tendinitis Referrals: Tiny Hood PA-C [Primary Care Provider] - Forms: ED Department Discharge Care Plan Goals: Keep leg wrapped for comfort, ambulate as tolerated, and take 1 dose of Toradol every 6-8 hours until gone. Recheck next week as discussed for consultation on your recurring knee pain. Sepsis Event Note (ED) - Evaluation Sepsis Screening Result: No Definite Risk - Focused Exam Vital Signs: Vital Signs Temp Pulse Resp BP Pulse Ox 01/10/21 12:28 97.8 F 85 16 118/76 97 01/10/21 12:18 97.8 F 85 16 118/76 97 - My Orders Last 24 Hours: My Active Orders 01/10/21 12:43 Consult to Orthopedic Clinic [CONS] Routine - Assessment/Plan Last 24 Hours: My Active Orders 01/10/21 12:43 Consult to Orthopedic Clinic [CONS] Routine
== END 2021-01-10 13:13 | disposition home or self-care (01) ==
LOC: JP.ED 11:57
DX: M76.9 Unspecified enthesopathy, lower limb, excluding foot (principal); Z88.0 Allergy status to penicillin; Z88.1 Allergy status to other antibiotic agents; Z86.718 Personal history of other venous thrombosis and embolism
CPT/HCPCS: 99283

== ENCOUNTER 2021-05-21 08:30 | Emergency (ER) | payer MEDICARE, MEDICAID ==
--- NOTE | 2021-05-21 09:55 | EDM.PDOC ---
ED HPI GENERAL MEDICAL PROBLEM - General Chief Complaint: Gastrointestinal Problem Stated Complaint: POSSIBLE EXPLODED HEMORRHOID Time Seen by Provider: 05/21/21 09:28 Source of Information: Reports: Patient, RN Notes Reviewed History Limitations: Reports: No Limitations - History of Present Illness INITIAL COMMENTS - FREE TEXT/NARRATIVE: 40-year-old female presents emergency department today with complaint of bleeding hemorrhoid, she states she has had hemorrhoids in the past this particular 1 started bleeding this morning she has gone through 1 pad. She does not feel lightheaded or dizzy at this time Bilateral Lower Abdomen Pain Score (Numeric/FACES): 1 - Related Data Allergies Allergy/AdvReac Type Severity Reaction Status Date / Time Penicillins Allergy Vomiting Verified 01/10/21 12:24 Sulfa (Sulfonamide Allergy Itching Verified 01/10/21 12:24 Antibiotics) Home Meds: Home Meds Citalopram [Citalopram HBr] 30 mg PO DAILY 11/22/17 [History] Acetaminophen/HYDROcodone [HYDROcodone-Acetaminophen 5-325 MG *] 1 tab PO Q6H PRN 01/14/21 [History] Cyclobenzaprine [Flexeril] 10 mg PO TID PRN 01/14/21 [History] Fluticasone Propionate [Flonase] 2 spray NASBOTH DAILY 01/14/21 [History] Hydrocortisone [Anusol-HC] 30 gm RC BID #1 cream..g. 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 left knee pain Neurological History: Reports: None Psychiatric History: Reports: Anxiety, Depression, PTSD Endocrine/Metabolic History: Reports: None Hematologic History: Reports: Anticoagulation Therapy Immunologic History: Reports: None Oncologic (Cancer) History: Reports: None Dermatologic History: Reports: None - Infectious Disease History Infectious Disease History: Reports: Chicken Pox - Past Surgical History Head Surgeries/Procedures: Reports: None Cardiovascular Surgical History: Reports: None GI Surgical History: Reports: Appendectomy, ERCP Female Surgical History: Reports: Lithotripsy/ESWL Musculoskeletal Surgical History: Reports: Other (See Below) Other Musculoskeletal Surgeries/Procedures:: back surgery x 3 Oncologic Surgical History: Reports: None Dermatological Surgical History: Reports: None Social & Family History - Tobacco Use Tobacco Use Status *Q: Current Every Day Tobacco User Years of Tobacco use: 14 Packs/Tins Daily: 2 - Caffeine Use Caffeine Use: Reports: Coffee, Soda - Living Situation & Occupation Living situation: Reports: , with Family (lives with and 3 children ages 3 month, 7 year, and 16 years Home in [place] about [place] north of [place]) ED ROS GENERAL - Review of Systems Review Of Systems: See Below Constitutional: Reports: No Symptoms Respiratory: Reports: No Symptoms Cardiovascular: Reports: No Symptoms GI/Abdominal: Reports: Bloody Stool, Other (Hemorrhoids) ED EXAM, GI/ABD - Physical Exam Exam: See Below Text/Narrative:: Examination the presence of nursing staff I do appreciate a large thrombosed hemorrhoid it is not actively bleeding but there is bright red blood present. It is tender to the touch Exam Limited By: No Limitations General Appearance: Alert, WD/WN, No Apparent Distress Course - Vital Signs Last Recorded V/S: Last Vital Signs Temp 97.5 F 05/21/21 09:07 Pulse 73 05/21/21 09:07 Resp 14 05/21/21 09:07 BP 121/65 05/21/21 09:07 Pulse Ox 98 05/21/21 09:07 Departure - Departure Time of Disposition: 09:54 Disposition: Home, Self-Care 01 Condition: Fair Clinical Impression: Thrombosed external hemorrhoid - Discharge Information Prescriptions: Hydrocortisone [Anusol-HC] 30 gm RC BID #1 cream..g. Instructions: Hemorrhoids, Ixse-as-Sved Referrals: Tiny Hood PA-C [Primary Care Provider] - Additional Instructions: PleaseTry the Anusol cream this has been faxed to [facility], stool softeners high-fiber diet and sitz bath's call to the [facility] in the morning for an appointment time with general surgery probably next week call return to the emergency department worsening of symptoms Sepsis Event Note (ED) - Focused Exam Vital Signs: Vital Signs Temp Pulse Resp BP Pulse Ox 05/21/21 09:07 97.5 F 73 14 121/65 98 - Assessment/Plan Plan: Assessment Acuity = acute Site and laterality = thrombosed hemorrhoid Etiology = unknown Manifestations = painful rectum Location of injury = Home Lab values = none Plan Consultation was set up with general surgery she will call to the clinic in the morning for appointment time call return to the emergency department worsening symptoms prescription for Anusol cream was faxed to [facility] pharmacy This note was dictated using [employer] voice recognition software please call with any questions on syntax or grammar.
== END 2021-05-21 10:05 | disposition home or self-care (01) ==
LOC: JP.ED 08:30
DX: K64.5 Perianal venous thrombosis (principal); Z88.0 Allergy status to penicillin; Z88.2 Allergy status to sulfonamides; Z72.0 Tobacco use; Z79.01 Long term (current) use of anticoagulants
CPT/HCPCS: 99282

== ENCOUNTER 2022-01-20 22:15 | Emergency (ER) | payer MEDICARE, MEDICAID ==
[2022-01-20] MEDS ORDERED: Propofol 200 MG/20 ML SDV ONE (23:20)
[2022-01-20] MEDS ORDERED: Sodium Chloride 0.9% 500 ML IV ONE (23:56)
== END 2022-01-21 00:24 | disposition home or self-care (01) ==
LOC: JP.ED 22:15
DX: M24.411 Recurrent dislocation, right shoulder (principal); F17.210 Nicotine dependence, cigarettes, uncomplicated; Z88.0 Allergy status to penicillin; Z88.2 Allergy status to sulfonamides
CPT/HCPCS: 23650; 73030; 96360; 99284; J2704; J7040

== ENCOUNTER 2024-01-31 21:01 | Emergency (ER) | payer MEDICARE, MEDICAID | END 2024-01-31 23:15 | disposition home or self-care (01) | LOC: JP.ED 21:01 | DX: S63.614A Unspecified sprain of right ring finger, initial encounter (principal); F17.210 Nicotine dependence, cigarettes, uncomplicated; Z79.899 Other long term (current) drug therapy; Z88.0 Allergy status to penicillin; Z88.2 Allergy status to sulfonamides; W23.0XXA Caught, crushed, jammed, or pinched between moving objects, initial encounter | CPT/HCPCS: 73130-26-RT; 73130-RT; 99283 ==

== ENCOUNTER 2025-01-13 15:24 | Emergency (ER) | payer MEDICARE, MEDICAID ==
[2025-01-13 15:35] LABS: BASOPHILS ABSOLUTE AUTO 0.08 K/uL (0.00-0.10); BASOPHILS PERCENT AUTO 0.7 % (0.1-1.3); EOSINOPHILS ABSOLUTE AUTO 0.11 K/uL (0.00-0.40); EOSINOPHILS PERCENT AUTO 0.9 % (0.0-5.4); IMMATURE GRAN ABSOLUTE AUTO 0.03 K/uL (0.00-0.23); IMMATURE GRAN PERCENT AUTO 0.3 % (0.0-0.7); LYMPHOCYTES ABSOLUTE AUTO 2.16 K/uL (0.8-3.3); LYMPHOCYTES PERCENT AUTO 18.4 % (11.4-47.7); MONOCYTES ABSOLUTE AUTO 1.17 K/uL (0.20-0.90); MONOCYTES PERCENT AUTO 10.0 % (3.3-12.6); NEUTROPHILS ABSOLUTE AUTO 8.20 K/uL (1.0-7.6); NEUTROPHILS PERCENT AUTO 69.7 % (40.0-78.1); PLATELET COUNT,PLT 203 K/uL (130-375); RED BLOOD CELL COUNT 4.36 M/uL (3.77-5.24); WHITE BLOOD CELL COUNT,WBC 11.8 K/uL (3.2-11.0)
[2025-01-13 16:00] LABS: BLOOD UREA NITROGEN,BUN 10.0 mg/dL (7-18); CARBON DIOXIDE,CO2 26.0 mmol/L (21-32); CHLORIDE,CL 103.0 mmol/L (100-108); CREATININE 0.7 mg/dL (0.6-1.0); EST CRCL DRUG DOSING (CG) 90.53 mL/min; ESTIMATED GFR 110.0 mL/min (>60); GLUCOSE RANDOM 99.0 mg/dL (74-106); POTASSIUM,K 4.1 mmol/L (3.6-5.2); SODIUM,NA 139.0 mmol/L (140-148); TROPONIN I HIGH SENSITIVITY 6.0 pg/mL (<=60.3)
[2025-01-13] MEDS: Iopamidol 755 Mg/ML 100 ML Bottle IV SCH (19:00)
== END 2025-01-13 18:59 | disposition home or self-care (01) ==
LOC: JP.ED 15:24
DX: I49.3 Ventricular premature depolarization (principal); R07.9 Chest pain, unspecified; Z88.0 Allergy status to penicillin; Z88.2 Allergy status to sulfonamides; Z79.899 Other long term (current) drug therapy; Z90.49 Acquired absence of other specified parts of digestive tract
CPT/HCPCS: 36415; 71275; 80048; 84484; 85025; 85379; 93005; 99285; A9270; Q9967; 93010; 99284

== ENCOUNTER 2025-05-12 16:51 | Emergency (ER) | payer MEDICARE, MEDICAID ==
[2025-05-12 17:42] LABS: INFLUENZA A NAA NEGATIVE (NEGATIVE); INFLUENZA B NAA NEGATIVE (NEGATIVE); RESPIRATORY SYNCYTIAL VIR NAA NEGATIVE (NEGATIVE)
[2025-05-12 17:46] LABS: CORONAVIRUS COVID-19 NAA POSITIVE (NEGATIVE)
== END 2025-05-12 18:12 | disposition home or self-care (01) ==
LOC: JP.ED 16:51
DX: U07.1 COVID-19 (principal); F17.200 Nicotine dependence, unspecified, uncomplicated; Z88.0 Allergy status to penicillin; Z88.2 Allergy status to sulfonamides; Z79.899 Other long term (current) drug therapy; Z86.16 Personal history of COVID-19; Z90.49 Acquired absence of other specified parts of digestive tract
CPT/HCPCS: 87637; 99283

== ENCOUNTER 2025-05-27 17:02 | Emergency (ER) | payer MEDICARE, MEDICAID | END 2025-05-27 19:20 | disposition home or self-care (01) | LOC: JP.ED 17:02 | DX: F41.9 Anxiety disorder, unspecified (principal); F17.200 Nicotine dependence, unspecified, uncomplicated; Z88.0 Allergy status to penicillin; Z88.2 Allergy status to sulfonamides; Z79.899 Other long term (current) drug therapy; Z86.16 Personal history of COVID-19 | CPT/HCPCS: 99283 ==